=== PATIENT | male | born 1975 | race Caucasian/White ===

== ENCOUNTER 2017-06-04 00:02 | Inpatient (IN) ==
--- OUTSIDE RECORDS SUMMARY | 2017-06-04 00:14 | External Medical Summary ---
:1975 Author Organization e[employer] Care Team Providers Name Role Phone Sadi Mata Provider Role Unavailable Allergies, Adverse Reactions, Alerts Substance Reaction Event Type N.K.D.A. Info Not Available Non Drug Allergy Problems Problem Type Condition ICD-9 Code Onset Dates Condition Status Problem Health examination of defined V70.5 Active subpopulation Assessment Left foot pain 729.5 Active Problem Sesamoiditis 733.99 Active Assessment Sesamoiditis 733.99 Active Medications No Known Medications Procedures Procedure Coding System Code Date OFFICE VISIT EST PATIENT LEVEL 3 CPT-4 69701 Sep 20, 2014 X-RAY EXAM OF FOOT CPT-4 94376 Sep 20, 2014 Vital Signs Date/Time: Sep 20, 2014 BMI 26.04 Index Weight 197.4 lbs Height 73 in Blood Pressure Diastolic 90 mm Hg Blood Pressure Systolic 130 mm Hg Cardiac Monitoring Heart Rate 62 /min Temperature 97.7 F Respiratory Rate 18 /min Results No Known Results Summary Purpose eClinicalWorks Submission
[2017-06-04] MEDS ORDERED: NS 1,000 ML IV ONE (00:20)
--- NOTE | 2017-06-04 00:20 | Emergency Department Report ---
Psych HPI - General Stated Complaint: Eval Time Seen by Provider: 06/04/17 00:08 Source: patient, police Mode of arrival: ambulatory Limitations: no limitations - History of Present Illness HPI Narrative: Pt has become despondent over his PTSD and alcohol abuse. After a two day [place] the [place] considering killing himself because he he feels like he has no one to turn to for help. He admits daily alcohol abuse and has approached [facility] and was told to go to [facility]. [facility] gave him an appointment, but will not see him until he is sober. [facility] since [facility] an [place] , but feels like he is getting the run around. Roberto Wilder [facility]'s deputy brought pt to [facility] to get help. He feels like he needs alcohol detox since he gets psychotic, violent, and has had seizures with withdrawal before. Pt is calm, and requesting assistance. He flatly denies any suicidal or homicidal ideation and says he just needs help. Denies any sx, and no drug use - Related Data Home Medications Medication Instructions Recorded Confirmed No known Home medications [No home 06/04/17 06/04/17 meds] Allergies Allergy/AdvReac Type Severity Reaction Status Date / Time No Known Allergies Allergy Verified 06/04/17 00:30 Review of Systems All systems: reviewed and negative except as stated PFSH Patient Stated Medical History Migraine Yes Hypertension Yes: INTERMITTENT, NOT TAKING MED Other Respiratory Yes: INSOMNIA Other Musculoskeletal Yes: PINCHED NERVE IN NECK, MULTIPLE Depression Yes Post Traumatic Stress Disorder Yes alcohol abuse - Social History Smoking status: Current some day smoker Substance use type: does not use Alcohol intake frequency: 3 or more drinks per day Physical Exam - Limitations Limitations: no limitations - General General appearance: alert - Normal Exams: Head:: Normocephalic without trauma Eyes:: Pupils are PERRLA w/ EOMI, No scleral icterus, irritation, or foreign bodies noted ENMT:: No facial trauma, nasal exudates, pharyngeal erythema, or exudates are noted Neck:: Full range of motion, without adenopathy, JVD, bruits or thyromegaly Chest/Respirations:: Clear all conner, with good airflow, and symmetry bilaterally Cardiovascular:: Regular rate and rhythm, without murmur or gallop, Pulses 2+ all extremities, capillary refill, <2 seconds all extremities Abdomen:: Bowel sounds positive, soft, non-tender, non-distended, no hepatosplenomegaly, masses or bruits noted Lymphatic:: No lymphadenopathy, or lymphedema noted Musculoskeletal:: No tenderness, or deformity noted, good range of motion, all extremities Integumentary:: No rashes, hives, or bruising noted, hair and nails, without abnormality Neurological:: Patient is alert, and oriented, cranial nerves, motor/sensory/ cerebellar, exams w/o gross deficits, to observation Psychiatric:: Patient exhibits, appropriate attention, emotion and affect Course Vital Signs Temperature 97.6 F 06/04/17 00:06 Pulse Rate 101 H 06/04/17 00:06 Respiratory Rate 20 06/04/17 00:06 Blood Pressure 146/107 H 06/04/17 00:06 Pulse Oximetry 96 06/04/17 00:06 Temperature 97.6 F 06/04/17 00:06 Pulse Rate 101 H 06/04/17 00:06 Respiratory Rate 20 06/04/17 00:06 Blood Pressure 146/107 H 06/04/17 00:06 Pulse Oximetry 96 06/04/17 00:06 Psych - MDM Narrative Medical decision making narrative: ETOH - elevated 341 CBC - n CMP - normal except elevated Na 150, mild elevated liver enzymes, consistent with etoh abuse and dehydration TSH - n UDS - n Pt given 1LNS initially and then Ativan 1mg in ERfor feelings of agitation and restlessness he associates with withdrawal. Information sent to [facility] for possible transfer for alcohol abuse/detox and depression. [facility] agrees that pt needs inpatient care, but "unfortunately we are on diversion. " Discussed with Dr. Kirk, agrees to inpatient admit for alcohol abuse and withdrawal with DT's - Lab Data Result diagrams: 06/04/17 00:29 06/04/17 00:29 Lab Results 06/04/17 06/04/17 06/04/17 Range/Units 00:29 00:29 01:12 WBC 5.0 (4.5-11.0) T/MM3 RBC 5.30 (4.50-5.90) M/MM3 Hgb 17.1 (13.5-17.5) GM/DL Hct 48.2 (41-53) % MCV 90.9 (80-100) UM3 MCH 32.3 (26-34) UUG MCHC 35.5 (31-37) GM/DL RDW Std Deviation 40.8 (36.9-50.2) FL Plt Count 142 (130-400) T/MM3 MPV 9.2 L (9.4-12.4) UM3 Immature Gran % (Auto) 0.2 (0.0-0.5) % Neut % (Auto) 46.1 (33-66) % Lymph % (Auto) 42.3 (23-45) % Nicholas % (Auto) 8.0 (0-9.0) % Eos % (Auto) 2.6 (0-4) % Baso % (Auto) 0.8 (0-2) % Neut # (Auto) 2.3 (1.8-7.7) T/MM3 Lymph # (Auto) 2.1 (1-4.8) T/MM3 Nicholas # (Auto) 0.4 (0-0.8) T/MM3 Eos # (Auto) 0.1 (0-0.5) T/MM3 Baso # (Auto) 0.0 (0-0.2) T/MM3 Abs Immat Gran (auto) 0.01 (0.00-0.03) T/MM3 Turbidity < 20 (0-20) Sodium 150 H (134-144) MEQ/L Potassium 3.7 (3.6-5) MEQ/L Chloride 104 (98-107) MEQ/L Carbon Dioxide 26 (22-30) MEQ/L Anion Gap 20 H (5-15) meq/L BUN 9.0 (9-20) MG/DL Creatinine 1.0 (0.8-1.5) mg/dL GFR Calculation 82 BUN/Creatinine Ratio 9 (6-26) RATIO Glucose 115 H (75-110) MG/DL Calculated Osmolality 288 H (261-280) MOSM/KG Calcium 9.1 (8.4-10.2) MG/DL Total Bilirubin 0.50 (0.20-1.30) MG/DL Conjugated Bilirubin 0.00 (0.00-0.30) mg/dL Unconjugated Bilirubin 0.30 (0.00-1.1) mg/dL Icterus Index < 2 (0-7) AST 120 H (17-59) U/L ALT 121 H (1-50) U/L Alkaline Phosphatase 69 (38-126) U/L Total Protein 8.6 H (6.3-8.2) g/dL Albumin 5.0 (3.5-5.0) g/dL Globulin 3.6 (2.4-3.6) G/DL Albumin/Globulin Ratio 1.4 (1.1-2.2) RATIO TSH 3.60 (0.47-4.68) mIU/L Specimen Hemolysis < 15 (0-25) Ur Collection Type Urine, void-cc/notcc Urine Color Yellow (YELLOW) Urine Clarity Clear Urine pH 6.0 (5.0-8.0) Ur Specific Pilot >=1.030 H (1.015-1.025) Urine Protein 2+ A (NEGATIVE) Urine Glucose (UA) Negative (NEGATIVE) Urine Ketones Negative (NEGATIVE) Urine Occult Blood 2+ A (NEGATIVE) Urine Nitrate Negative (NEGATIVE) Urine Bilirubin Negative (NEGATIVE) Urine Urobilinogen 0.2 (NORMAL) EU/DL Ur Leukocyte Esterase Negative (NEGATIVE) Urine RBC 1-3 (0-3) /HPF Urine WBC None seen (0-5) /HPF Amorphous Sediment Few Urine Bacteria None seen (NEGATIVE) Urine Mucus Present Ur Culture Indicated? Cult not indicated Urine Opiates Screen ng/mL Ur Oxycodone Screen ng/mL Urine Methadone Screen ng/mL Ur Propoxyphene Screen ng/mL Ur Barbiturates Screen ng/mL U Tricyclic Antidepress ng/mL Ur Phencyclidine Scrn ng/mL Ur Amphetamines Screen ng/mL U Methamphetamines Scrn ng/mL U Benzodiazepines Scrn ng/mL Urine Cocaine Screen ng/mL U Cannabinoids Screen ng/mL Alcohol, Quantitative 341 (<10) mg/dL 06/04/17 Range/Units 01:13 WBC (4.5-11.0) T/MM3 RBC (4.50-5.90) M/MM3 Hgb (13.5-17.5) GM/DL Hct (41-53) % MCV (80-100) UM3 MCH (26-34) UUG MCHC (31-37) GM/DL RDW Std Deviation (36.9-50.2) FL Plt Count (130-400) T/MM3 MPV (9.4-12.4) UM3 Immature Gran % (Auto) (0.0-0.5) % Neut % (Auto) (33-66) % Lymph % (Auto) (23-45) % Nicholas % (Auto) (0-9.0) % Eos % (Auto) (0-4) % Baso % (Auto) (0-2) % Neut # (Auto) (1.8-7.7) T/MM3 Lymph # (Auto) (1-4.8) T/MM3 Nicholas # (Auto) (0-0.8) T/MM3 Eos # (Auto) (0-0.5) T/MM3 Baso # (Auto) (0-0.2) T/MM3 Abs Immat Gran (auto) (0.00-0.03) T/MM3 Turbidity (0-20) Sodium (134-144) MEQ/L Potassium (3.6-5) MEQ/L Chloride (98-107) MEQ/L Carbon Dioxide (22-30) MEQ/L Anion Gap (5-15) meq/L BUN (9-20) MG/DL Creatinine (0.8-1.5) mg/dL GFR Calculation BUN/Creatinine Ratio (6-26) RATIO Glucose (75-110) MG/DL Calculated Osmolality (261-280) MOSM/KG Calcium (8.4-10.2) MG/DL Total Bilirubin (0.20-1.30) MG/DL Conjugated Bilirubin (0.00-0.30) mg/dL Unconjugated Bilirubin (0.00-1.1) mg/dL Icterus Index (0-7) AST (17-59) U/L ALT (1-50) U/L Alkaline Phosphatase (38-126) U/L Total Protein (6.3-8.2) g/dL Albumin (3.5-5.0) g/dL Globulin (2.4-3.6) G/DL Albumin/Globulin Ratio (1.1-2.2) RATIO TSH (0.47-4.68) mIU/L Specimen Hemolysis (0-25) Ur Collection Type Urine Color (YELLOW) Urine Clarity Urine pH (5.0-8.0) Ur Specific Pilot (1.015-1.025) Urine Protein (NEGATIVE) Urine Glucose (UA) (NEGATIVE) Urine Ketones (NEGATIVE) Urine Occult Blood (NEGATIVE) Urine Nitrate (NEGATIVE) Urine Bilirubin (NEGATIVE) Urine Urobilinogen (NORMAL) EU/DL Ur Leukocyte Esterase (NEGATIVE) Urine RBC (0-3) /HPF Urine WBC (0-5) /HPF Amorphous Sediment Urine Bacteria (NEGATIVE) Urine Mucus Ur Culture Indicated? Urine Opiates Screen Negative ng/mL Ur Oxycodone Screen Negative ng/mL Urine Methadone Screen Negative ng/mL Ur Propoxyphene Screen Negative ng/mL Ur Barbiturates Screen Negative ng/mL U Tricyclic Antidepress Negative ng/mL Ur Phencyclidine Scrn Negative ng/mL Ur Amphetamines Screen Negative ng/mL U Methamphetamines Scrn Negative ng/mL U Benzodiazepines Scrn Negative ng/mL Urine Cocaine Screen Negative ng/mL U Cannabinoids Screen Negative ng/mL Alcohol, Quantitative (<10) mg/dL Disposition Clinical Impression: Alcohol abuse Alcohol withdrawal Qualifiers: Complication of substance-induced condition: uncomplicated Qualified Code(s): F10.230 - Alcohol dependence with withdrawal, uncomplicated Disposition: 02 To [facility] Acute Care Condition: Improved Prescriptions: No Action No known Home medications [No home meds] 0 #0 misc - Seen By: physician
[2017-06-04] MEDS: SALINE FLUSH 10ml SYRINGE IVF PRN ×3 (00:38→03:26)
[2017-06-04] MEDS ORDERED: DiphenhydrAMINE 50 MG/ML INJECTION IVP ONE (03:07)
[2017-06-04] MEDS ORDERED: PROCHLORPERAZINE 10 MG/2 ML INJECTION IVP ONE (03:07)
[2017-06-04 04:12] VITALS: BMI 25.4
[2017-06-04] MEDS ORDERED: MAG-AL + SIM ORAL LIQUID 30ml PO PRN (04:28)
--- NOTE | 2017-06-04 04:32 | History & Physical Report ---
History of Present Illness Date: 06/04/17 Chief complaint: alcohol intoxication HPI: 42 who presented to the ER wishing to be admitted for he can withdrawl safely. He states he has tried to stop drinking at home without success and has had seizure in the past. Tonight the [facility]. He minimally answers questions during the exam. denies pain, tremors, hallucinations. Review of Systems All systems PM: 10-point ROS was reviewed, no additional remarkable complaints except Past Medical History Medical History Updates: no new changes Family History: As Above - Social History Smoking status: Current some day smoker Alcohol intake frequency: 3 or more drinks per day Last drink: just [employer] Housing: apartment Household members: none Current occupational status: unemployed Medications Home Medications Medication Instructions Recorded Confirmed Type No known Home medications [No home 06/04/17 06/04/17 History meds] Allergies Allergy/AdvReac Type Severity Reaction Status Date / Time No Known Allergies Allergy Verified 06/04/17 00:30 Exam Vital Signs: Temperature 96.6 F L 06/04/17 04:07 Pulse Rate 65 06/04/17 04:07 Respiratory Rate 16 06/04/17 04:07 Blood Pressure 136/88 06/04/17 04:07 Pulse Oximetry 94 06/04/17 04:07 Height/Weight/BMI: Height 1.88 m Weight 90 kg Body Mass Index 25.4 - Constitutional Present: no acute distress, somnolent - Routine Neck Exam Present: supple - Routine Respiratory Exam Present: CTA bilaterally - Routine Cardiovascular Exam Present: RRR, no murmur - Routine Abdominal Exam Present: soft, normoactive bowel sounds, non tender Results - Labs CBC & Chem 7: 06/04/17 00:29 06/04/17 00:29 Assessment and Plan (1) Alcohol abuse Current visit: Yes Status: Acute Assessment and Plan: will start the pt on IVFluids, 125cc/hr, ativan prn per alcohol withdrawl protocol. monitor for neuro changes. PPI ordered GI Prophylaxis: Protonix Resuscitation Status: Full Code - Physician Narrative Narrative: Date: 06/04/17 Time: 042 Hospital Course Summary Disclaimer: The visit summary below is not to be considered part of the above Progress Note.
[2017-06-04] MEDS: D5NS 1,000 ML IV SCH ×2 (04:43→13:45)
[2017-06-04] MEDS: PANTOPRAZOLE 20 MG TABLET PO SCH ×2 (05:32→17:03)
[2017-06-04] MEDS: MULTI-VITAMIN + MINERAL TABLET PO SCH (09:40)
[2017-06-04] MEDS: FOLIC ACID 1 MG TABLET PO SCH (09:40)
[2017-06-04] MEDS: BACLOFEN 10 MG TABLET PO SCH ×2 (09:40→15:26)
[2017-06-04] MEDS ORDERED: ACETAMINOPHEN 325 MG TABLET PO PRN (14:12)
[2017-06-04] MEDS ORDERED: ONDANSETRON 4 MG/2 ML INJECTION IVP PRN (14:19)
[2017-06-04] MEDS ORDERED: CYCLOBENZAPRINE 10 MG TABLET PO PRN (19:22)
[2017-06-05] MEDS: D5NS 1,000 ML IV SCH ×3 (00:50→10:58)
[2017-06-05 01:09] VITALS: O2SAT 96
[2017-06-05] MEDS: PANTOPRAZOLE 20 MG TABLET PO SCH (06:10)
[2017-06-05 07:33] VITALS: BP 155/96; PULSE 56; RESP 18; TEMP 96
[2017-06-05] MEDS: FOLIC ACID 1 MG TABLET PO SCH (08:34)
[2017-06-05] MEDS: MULTI-VITAMIN + MINERAL TABLET PO SCH (08:34)
--- NOTE | 2017-06-05 13:22 | Discharge Summary ---
Discharge Information Date of admission: 06/04/17 03:06 Anticipated date of discharge: 06/05/17 Attending Physician: Maggie Copeland MD Primary care physician: Dr. Sadi Mata - Discharge Diagnosis (1) Alcohol abuse Status: Acute Acute alcohol intoxication. Chronic alcohol dependence and abuse. History of alcohol withdrawal. Transaminitis. Hypernatremia. Dehydration. GERD. Muscle spasm - upper back. Polysubstance abuse with marijuana. Depression with prior suicidal ideation. Hypertension. PTSD. Insomnia. Chronic neck/back pain. Tobacco dependency. History of Migraines. - Laboratory Labs: 06/04/17 06/05/17 WBC 5.0 4.1 Hgb 17.1 14.4 Plt 142 99 Na 150 141 K 3.7 3.6 BUN 9.0 8.0 SCr 1.0 1.0 GFR 82 82 Glu 115 108 Phos 3.4 Mg 2.0 AST 120 AST 121 06/04/17: TSH - 3.60 UA - 2+ protein, 2+ occult blood, RBC 1-3. Drugs of Abuse - negative. ETOH, quant - 341 06/05/17: INR - 1.06 History of Present Illness HPI: Ole Howe is a 42-year-old male patient of Dr. Carlos Terry who has a long history of alcohol abuse. He has successfully discontinued drinking on several occasions but continues to relapse. He reports a history of alcohol withdrawal with seizures when he has stopped drinking in the past. He reports that he typically drinks a pint of whiskey or bourbon daily. Recently he has increased to about 2 pints daily. He last tried to stop drinking 4-5 days ago but within 24 hours developed severe nausea and vomiting followed by shaking, a raw throat , and difficulty breathing. He doesn't think he had any actual seizures during that time but he is unsure. He ultimately controlled his symptoms by resuming alcohol use for the next 4 days, prior to presenting to the emergency room last night, 06/04/17, seeking assistance with alcohol cessation. He reports he haves a scheduled appointment with [facility] for inpatient rehabilitation early next week (week of 06/08/17) and is open to consideration of other alcohol treatment programs if needed. He doesn't think he is been blacking out related to alcohol but has had one prior DUI and reported family conflicts have arisen due to his alcohol use. He feels strongly that he needs to stop drinking for his health and to continue living. Alcohol level when he presented to the emergency room was 341. Other labs were otherwise unremarkable with the exception of hypernatremia (Na 150) and elevated liver enzymes. He was admitted to inpatient status for close hemodynamic monitoring, close monitoring for seizures and alcohol withdrawal as well as rehydration. Objective Vital signs: Temperature 96.0 F L 06/05/17 07:32 Pulse Rate 56 L 06/05/17 07:32 Respiratory Rate 18 06/05/17 07:32 Blood Pressure 155/96 H 06/05/17 07:32 Pulse Oximetry 96 06/05/17 07:32 Height/Weight/BMI: Height 6 ft 2 in Weight 200 lb 9.93 oz Body Mass Index 25.4 Comments: Resting in bed, watching TV. - Constitutional Present: no acute distress, well nourished, well developed, cooperative - Routine HEENT Exam Head: Present: normocephalic, atraumatic Eye: Present: PERRL. Absent: conjunctival icterus ENT: Present: mucous membranes dry, oropharynx clear - Routine Respiratory Exam Present: CTA bilaterally. Absent: respiratory distress, rhonchi, wheezes - Routine Cardiovascular Exam Present: RRR, S1, S2 - Routine Abdominal Exam Present: soft, normoactive bowel sounds, non tender - Routine Extremities Exam Present: no edema, full ROM, pulses intact - Routine Back/Spine/Pelvis Exam Back/Spine: Present: full ROM. Absent: vertebral tenderness - Routine Musculoskeletal Exam Musculoskeletal: Present: no clubbing or cyanosis, moving extremities well - Routine Skin Exam Present: intact, dry, warm. Absent: jaundice Comments: Afebrile. - Routine Neurological Exam Present: alert, oriented X3, CN II-XII intact, moving all extremities, hearing grossly intact, normal speech - Routine Lymphatic Exam Lymphatic: Absent: lymphedema - Routine Psychiatric Exam Present: normal affect, cooperative, good insight, good judgment Hospital Course This is a general summary of the patient's hospital course. For more details refer to the complete medical record. Hospital course: Mr. Howe was admitted to inpatient status under the care of the hospitalist service. He was monitored closely given his high risk for alcohol withdrawal and DTs. Alcohol withdrawal protocol was initiated including seizure precautions, close neurologic monitoring and Ativan PRN in conjunction with IV fluids, clonidine for withdrawal, Protonix for GI protection and GERD as well as thiamine and folic acid replacement. Case management was consulted to assist with discharge planning. He reports previous withdrawal symptoms within 24 hours of his last drink, he is counselled on his increased risk of withdrawal over the next 3-4 days which will require tapering benzos. Throughout his hospitalization, his blood pressure remained stable and he denied any symptoms of withdrawal. He denies current blood pressure treatment at home. Given his chronic neck/back pain with acute muscle spasm, he was given Flexeril and Tylenol PRN. On admission he was noted to have hypernatremia (Na 150) which resolved with rehydration with IV fluids. On 06/05/17 he was noted to have new mild leukopenia (WBC 4.1) as well as new thrombocytopenia ( Plt 99). Suspect underlying cirrhosis, especially with elevated liver enzymes noted on admission. Patient is eager for discharge home. He plans to keep his appointment at [facility] for 06/08/17 at 2:30 and encourage to return the ED if change or worsening or seizures. Home treatment discussed and will include continuation of Ativan 1mg every 6 hours as needed for withdrawal symptoms as well as clonidine 0.1mg twice daily. Patient encouraged to have his labs rechecked as an outpatient in the next 1-2 weeks or as able. Plan to discharge patient home today, 06/05/17. Time spent with patient: greater than 35 minutes Resuscitation Status: Full Code Discharge Plan - Discharge Disposition Discharge Date: 06/05/17 Disposition: 01 Discharged Home, Self-Care *Condition: Improved Reason For Visit (Visit label in EMR): alcohol abuse, alcohol withdrawal - Discharge Medications *Discharge Medications: New Acetaminophen [Tylenol] 650 mg PO QID PRN tab PRN Reason: Discomfort CloNIDine [Catapres] 0.1 mg PO BID #15 tab Folic Acid [Folate] 1 mg PO DAILY #30 tab Multi-Vitamin + Mineral [Therapeutic - M] 1 tab PO DAILY #30 tab Pantoprazole Sodium [Protonix] 20 mg PO ACBID #30 tablet. LORazepam [Ativan] 1 mg PO Q6H PRN #10 tab PRN Reason: Agitation/Restlessness Ondansetron [Zofran Odt] 1 tab PO Q6HR #20 tab Thiamine HCl 100 mg PO DAILY #30 tab - Discharge Packet/Instructions *Diet: Regular as tolerated. *Activity: As tolerated. *Pain Management/Treatment: Tylenol 650mg every 6 hours as needed for pain. Heat/Ice packs to areas as needed. *Wound Care: Not applicable. Additional Instructions: Keep your appointment at [facility] for 06/08/17 at 2:30. Rest, maintain good oral intake with adequate eating and drinking of non- alcoholic fluids. You have been provided Ativan 1mg tabs which you may take every 6 hours as needed for anxiety/agitation/restless and alcohol withdrawal symptoms. Continue clonidine 0.1mg tabs twice a day (once in the morning and once in the evening) to assist with alcohol withdrawal symptoms. Follow up with your primary doctor in the next 1-2 weeks. Would recommend having your labs repeated to monitor blood counts, electrolytes and renal function. Return to the ED if any changes, worsening, seizures, fevers or additional concerns. *Expected Signs/Symptoms: Gradual improvement. *Notify Physician if: fever >100.8, chest pain, shortness of breath, seizures, decreased level of consiousness, changes, worsening or additional questions. *During Business Hours Contact: Dr. Carlos Terry at [phone]. *After Business Hours Contact: the on-call physician for Dr. Terry at or your nearest emergency department. *Pending Lab/Results: No Pending Lab - Referrals/Follow Up *Referrals/Follow Up: Conor Brumfield MD [Physician] - 06/08/17 2:00 pm (Keep your appointment at [facility] on 06/08/17) - Patient Handouts Patient Handouts: Abuse of Alcohol (DC), Alcohol Withdrawal (GEN) - Dismissal Complete Discharge Instructions are:: Complete Physician Narrative - Narrative Physician: Maggie Copeland MD Attestation Narrative: Date: 06/05/17 Time: 1900 I have independently evaluated and examined this patient. I reviewed the chart, the patient's history, and the MEDICAL SALES ASSOCIATE/PA's documented findings as above. We discussed and formulated the assessment and plan as above with additions as below: Ole reports minimal shakiness in his hands but no nausea or vomiting, no agitation, and no hallucinations. He feels stable to discharge home with plans to follow-up at [facility] Thursday as previously planned to proceed with inpatient alcohol treatment. On examination the patient appears well, speech is fluent, and he follows train of thought without difficulty. With arms outstretched there is very minor tremor. Respirations are nonlabored and breath sounds clear. Stable to discharge home with continuation of clonidine; discussed addition of lorazepam prn if alcohol withdrawal symptoms intensify and return to the emergency room if he has significant withdrawal symptomatology.
== END 2017-06-05 15:50 | disposition home or self-care (01) | DRG 897 ==
LOC: ED 00:02 → MED 03:06
PROVIDERS: ADMIT Internal Medicine; ATTEND Internal Medicine